=== PATIENT | male | born 1970 | race Caucasian/White ===

== ENCOUNTER 2022-07-05 05:12 | Emergency (ER) | payer SELFPAY ==
[2022-07-05] MEDS ORDERED: Ketorolac 60 MG/2 ML SDV IM ONE (05:57)
== END 2022-07-05 07:15 | disposition home or self-care (01) ==
LOC: CC.ED 05:12
DX: S39.012A Strain of muscle, fascia and tendon of lower back, initial encounter (principal); I10 Essential (primary) hypertension; Z79.899 Other long term (current) drug therapy
CPT/HCPCS: 72100; 96372; 99283; J1885